=== PATIENT | female | born 1960 | race Caucasian/White ===

== ENCOUNTER 2017-08-15 12:23 | Day surgery (SDC) | payer OTHER ==
[~2017-08-15 12:23] MED LIST: CLINDAMYCIN 600 MG/50 ML D5W IVPB IVPB
[2017-08-15] MEDS ORDERED: POLYMYXIN/BACITRACIN 1L IRRIG (13:58)
[2017-08-15] MEDS ORDERED: PROPOFOL 20 ML (14:16)
[2017-08-15] MEDS ORDERED: CEFAZOLIN 1 GM INJ (14:17)
[2017-08-15] MEDS ORDERED: GLYCOPYRROLATE 0.4 MG INJ (14:17)
[2017-08-15] MEDS ORDERED: DEXAMETHASONE 4 MG/ML 1 ML INJ (14:17)
[2017-08-15] MEDS ORDERED: NEOSTIGMINE 3 MG/3 ML SYRINGE (14:17)
[2017-08-15] MEDS ORDERED: FENTAnyl 50 MCG/ML VIAL (14:17)
[2017-08-15] MEDS ORDERED: ONDANSETRON 4 MG INJ (14:17)
[2017-08-15] MEDS ORDERED: MIDAZOLAM 1 MG/ML 2 ML INJ (14:17)
[2017-08-15] MEDS ORDERED: ROCURONIUM 50 MG INJ (14:17)
[2017-08-15] MEDS ORDERED: ROPIVACAINE 0.5 % 30 ML VIAL (14:18)
[2017-08-15] MEDS ORDERED: ONDANSETRON 4 MG INJ IV (15:30)
[2017-08-15] MEDS ORDERED: TRIMETHOBENZAMIDE 100 MG/ML VIAL IM (15:30)
[2017-08-15] MEDS ORDERED: DIPHENHYDRAMINE 50 MG INJ IV (15:30)
[2017-08-15] MEDS ORDERED: EPHEDrine SULFATE 50 MG/5 ML SYG IV (15:30)
[2017-08-15] MEDS ORDERED: HYDROmorphONE (0.2 MG/ML) 10ML SYG IV ×3 (15:30)
[2017-08-15] MEDS ORDERED: MIDAZOLAM 1 MG/ML 2 ML INJ IV (15:30)
[2017-08-15] MEDS ORDERED: LABETALOL HCL 20MG INJ IV (15:30)
[2017-08-15] MEDS ORDERED: FENTAnyl 50 MCG/ML VIAL IV ×3 (15:30)
[2017-08-15] MEDS ORDERED: ALBUTEROL 0.083% (NEB) 2.5 MG/3 ML AMP HHN (15:30)
[2017-08-15] MEDS ORDERED: hydrALAzine 20 MG INJ IV (15:30)
[2017-08-15] MEDS ORDERED: OXYCODONE/ACETAMINOPHEN (5/325) TAB PO ×3 (15:30→16:30)
[2017-08-15] MEDS ORDERED: IPRATROPIUM (NEB) 0.5 MG/2.5 ML AMP HHN (15:30)
[2017-08-15] MEDS ORDERED: MEPERIDINE 25 MG INJ IV (15:30)
[2017-08-15] MEDS ORDERED: SUGAMMADEX SODIUM 200 MG/2 ML VIAL IV (15:40)
== END 2017-08-15 18:21 | disposition home or self-care (01) ==
LOC: SDS 12:23
DX: S52.571A Other intraarticular fracture of lower end of right radius, initial encounter for closed fracture (principal); W19.XXXA Unspecified fall, initial encounter; G56.01 Carpal tunnel syndrome, right upper limb
CPT/HCPCS: 25609; 71045; 73110-RT; 93005